=== PATIENT | male | born 1965 | race Caucasian/White ===

== ENCOUNTER → 2023-09-12 16:15 | Outpatient (REF) | payer BC, SELFPAY | LOC: RAD 16:15 | PROVIDERS: ATTENDING PHYSICIAN Nurse Practitioner Family | DX: R22.1 Localized swelling, mass and lump, neck (principal) | CPT/HCPCS: 76536 ==

== ENCOUNTER → 2024-12-21 16:11 | Outpatient (REF) | payer BC, SELFPAY | LOC: RCS 16:11 | PROVIDERS: ATTENDING PHYSICIAN Nurse Practitioner Family | DX: R53.82 Chronic fatigue, unspecified (principal) | CPT/HCPCS: 93005 ==

== ENCOUNTER → 2025-02-04 14:00 | Outpatient (REF) | payer BC, SELFPAY | LOC: DHSLP 14:00 | PROVIDERS: ATTENDING PHYSICIAN Internal Medicine | DX: G47.33 Obstructive sleep apnea (adult) (pediatric) (principal); G47.31 Primary central sleep apnea; R09.02 Hypoxemia | CPT/HCPCS: 95811 ==

== ENCOUNTER → 2025-05-03 11:11 | Outpatient (REF) | payer BC, SELFPAY | LOC: RAD 11:11 | PROVIDERS: ATTENDING PHYSICIAN Internal Medicine | DX: M25.531 Pain in right wrist (principal) | CPT/HCPCS: 73110 ==